=== PATIENT | male | born 1975 | race African-American/Black ===

== ENCOUNTER 2016-11-08 12:30 | Inpatient (IN) | payer MEDICARE ==
--- NOTE | ~2016-11-08 | DS ---
Discharge Summary [facility] [address] [place]. [address] NAME: TAY MARIA : 73 STATUS : ADM IN PAT#: [id number] AGE: 41 ADM/REG DATE : 11/09/16 MR#: [id number] REPORT SERV DATE: 11/11/16 DICTATED BY: JASBIR SYED DATE: 11/11/16 REPORT STATUS : Draft TRANSCRIBED BY: MODEnder DATE: 11/11/16 ADMISSION DATE: 11/08/2016 DISCHARGE DATE: DISCHARGE DIAGNOSES: Include, 1. Diabetic ketoacidosis. 2. Diabetes type 2, uncontrolled. Hemoglobin A1c of 10.2. 3. History of gastric bypass. 4. History of clotting disorder, on chronic Xarelto. 5. History of obstructive sleep apnea, but not currently using CPAP. DISCHARGE MEDICATIONS: Lantus insulin 22 units subcu twice a day, NovoLog insulin 15 units prior to meals, multivitamin one tab daily; Afrin nasal spray p.r.n., but with caution to not use more than four days in a row, Xarelto 20 mg at bedtime; calcium two tabs daily; vitamin B12 one tablet daily; fish oil one capsule daily; vitamin D one capsule daily. HISTORY OF PRESENT ILLNESS: A very pleasant 41-year-old male, who presented with elevated blood sugar and diabetic ketoacidosis. Please see the initial H and P of Dr. Jesús Su. This patient was admitted to the Hospitalist Service for further evaluation and treatment. He was given aggressive IV hydration and insulin was started IV to control blood sugars. Lab work was ordered and followed. HOSPITAL COURSE: I began seeing the patient the following day on 11/09/2016 where he was still feeling poorly. He was still hyperglycemic. His anion gap had begun to decrease down to 14. He was continued on his insulin drip with close followup of BMPs and he was also continued on his IV hydration of D5 half-normal saline with 20 of K. His insulin drip was increased and this continued to improve his blood sugars. His anion gap then fell to 11. He was transitioned to Levemir twice a day, scheduled NovoLog and a sliding scale and his sugars were followed closely. He was able to eat and drink. He has been able to ambulate in the room and is feeling much better. On 11/11/2016, his anion gap had fallen all the way to 7.0. He was feeling much better. He was felt safe for discharge home, to follow up with his executive personal assistant/primary care Dr. Diaz as scheduled this month. Hopefully, the adjustment of his long-acting insulin to twice a day dosing along with his other regimen will give him some better control overall as he continues to follow up. He is in agreement with this plan going forward. Questions were answered at bedside with the patient and daughter. Please note, greater than 30 minutes was spent on this discharge for medication teaching, followup planning, and further disposition. OLIVER/JULIO Jasbir Syed NP Discharge Summary [address] [place]. [address] NAME: TAY MARIA : 73 STATUS : ADM IN [facility]#: [id number] AGE: 41 ADM/REG DATE : 11/09/16 MR#: [id number] REPORT SERV DATE: 11/11/16 DICTATED BY: JASBIR SYED DATE: 11/11/16 REPORT STATUS : Draft TRANSCRIBED BY: JULIO DATE: 11/11/16 / [id number] CC: Raven Sams M.D. NO PCP
--- NOTE | ~2016-11-08 | HP ---
History And Physical [place] [id number] [place]. [address] NAME: TAY MARIA : 73 STATUS : ADM Mary PAT#: [id number] AGE: 41 ADM/REG DATE : 11/08/16 MR#: [id number] REPORT SERV DATE: 11/11/16 DICTATED BY: AMELIA DO DATE: 11/08/16 REPORT STATUS : Draft TRANSCRIBED BY: MODL DATE: 11/08/16 DATE OF ADMISSION: 11/08/2016 ATTENDING PHYSICIAN: Dr. Bishop. REASON FOR ADMISSION: Diabetic ketoacidosis assumed versus metabolic acidosis and type 2 diabetic. HISTORY: A 41-year-old black male with history of diabetes since age 21. He had morbid obesity with a weight of 360 pounds. Two years ago, he underwent a gastric bypass by Dr. Isidro Alvarado for the Alex-en-Y procedure. He does not vomit any longer. He has been getting short of breath when he walks around the tract in [facility] for the last 4 days when he was feeling badly with some abdominal pain around the sides into the flank and the back and some dysuria. He says he did not feel like an infected kind of dysuria and he has had a urinary tract in the past. He was nauseated without vomiting. He is urinating well and had bowel movement earlier today. PAST MEDICAL HISTORY: He has a history of obstructive sleep apnea. Cannot tolerate CPAP. HOME MEDICATIONS: His home medications include the following: NovoLog 15 units before meals three times a day, Lantus 25 units at bedtime; multivitamin 1 a day; Afrin nasal spray two puffs at bedtime; Xarelto [address] mg [address] daily from Dr. De Souza; calcium 2 tablets p.o. daily; vitamin B12 of 1 tablet p.o. daily; fish oil one a day; and vitamin D. ALLERGIES: IODINATED CONTRAST MATERIAL. WHEN HE HAS HAD DIABETIC KETOACIDOSIS IN THE PAST, HE WAS HOSPITALIZED AT [facility] WHERE DR. DILLARD IS. HE DID HAVE HIS GASTRIC BYPASS HERE UNDER THE CARE OF DR. ALVARADO IN DECEMBER 2013. SOCIAL HISTORY: He is . He has three children. He does not smoke or drink. He lives in [facility] with his mother. He does not have a primary care doctor at this point. FAMILY HISTORY: He has one brother alive and well and his father had clotting abnormalities. His 3 children are alive and well. His mother is alive and well with obesity. SOCIAL HISTORY: He does not smoke or drink. He is disabled. He used to work at the [employer] in [place], [place]. He lives here now in [place] with his mother having gone through a divorce in the past. He lives in [facility] and plans to go to the [employer] [place] where his daughters are singing, if he is better. REVIEW OF SYSTEMS: He has had abdominal pain around the mid part into the flanks. No nausea or vomiting. No History And Physical [address] [address] NAME: TAY MARIA : 73 STATUS : ADM Mary PAT#: [id number] AGE: 41 ADM/REG DATE : 11/08/16 MR#: [id number] REPORT SERV DATE: 11/11/16 DICTATED BY: AMELIA DO DATE: 11/08/16 REPORT STATUS : Draft TRANSCRIBED BY: JULIO DATE: 11/08/16 diarrhea. Bowel movement last today. Ate supper last night. He has had no swelling in the lower extremities. No melena, hematemesis, fits, seizures, convulsions, unilateral weakness, nausea, vomiting, or diarrhea. He has no weight loss, has stabilized. The remainder of the review of systems is negative. PHYSICAL EXAMINATION: GENERAL: Obese, black male, in no acute distress. VITAL SIGNS: His blood pressure was 133/72 with a heart rate of 56, respiratory rate 18, afebrile. HEENT: EOMI. Sclerae clear. Conjunctivae pink. NECK: No bruit without any JVD. CHEST: Clear to A and P. HEART: Regular S1, S2 without any murmur, gallop, or click. ABDOMEN: Soft, diffusely tender. No particular masses felt. EXTREMITIES: Have no edema. Distal pulses intact, dorsalis pedis, and posterior tibial. NEUROLOGICAL: He withdraws to plantar stimulation. Rv Mechanic is equal and symmetric bilaterally. Coordination intact, has no tremor. He is symmetric and equal neurologically. LABORATORY DATA: His BNP was 7.4. Prothrombin time was INR 1.2. Comprehensive metabolic profile showed a sodium of 132, potassium 4.1, chloride is 102, the CO2 is 10, creatinine 1.08, glucose 365, albumin 3.6, and the alkaline phosphatase is 138. His hemoglobin is 15, hematocrit 45, and platelet count 315,000. His chest x-ray showed negative for acute disease. Urinalysis, none was done. Serum ketones, none was done. ASSESSMENT: 1. Probable diabetic ketoacidosis. We will check the urinalysis looking for evidence of ketones now. I am going to go ahead and get a lactic acid level on the serum and serum ketones as well. 2. Diabetes type 2, now insulin controlled 22 years' duration. This may actually be a type 1.5 with type 2 treated as type 1. 3. History of gastric bypass. 4. Clotting abnormality. Lupus anticoagulant on Xarelto continuously. 5. Dysuria with flank pain and abdominal pain. Check urinalysis now for evidence of infection or hematuria. He has no history of stones. 6. History of obstructive sleep apnea, intolerant of the BiPAP. PLAN: Check urinalysis first. He has urinary tract infection, treat with antibiotics. I am going to go ahead and go with D5 containing solutions if blood sugars come down to 256 and start an insulin drip concurrently to try to clear the ketones assuming this is the primary problem. We will check a procalcitonin. If there are no ketones in the urine, we will change the direction of our therapy. History And Physical [address] [address] NAME: TAY MARIA : 73 STATUS : ADM Mary PAT#: [id number] AGE: 41 ADM/REG DATE : 11/08/16 MR#: [id number] REPORT SERV DATE: 11/11/16 DICTATED BY: AMELIA DO DATE: 11/08/16 REPORT STATUS : Draft TRANSCRIBED BY: MODEnder DATE: 11/08/16 DB/JULIO elia Do M.D. / [id number] CC: Steven Monroe Gusso, M.Ranulfo Duggan M.D. Rory Justo, MD
[2016-11-08 12:14] LABS: BASOPHILS 0.5 %; BASOPHILS ABSOLUTE 0.03 10/3/uL (0.0-0.16); EOSINOPHILS 0.4 %; EOSINOPHILS ABSOLUTE 0.02 10/3/uL (0.0-0.53); ER CBC TAT 0 Hrs 08 Mins; HEMOGLOBIN 15.6 g/dL (13.6-17.8); IMMATURE GRANULOCYTES 0.2 %; IMMATURE GRANULOCYTES ABSOLUTE 0.01 10/3/uL (0.0-0.11); LYMPHOCYTES 31.1 %; LYMPHOCYTES ABSOLUTE 1.77 10/3/uL (0.67-4.30); MEAN PLATELET VOLUME 9.3 fL (9.2-13.0); MONOCYTES ABSOLUTE 0.51 10/3/uL (0.21-1.20); NEUTROPHILS 58.8 %; NEUTROPHILS ABSOLUTE 3.35 10/3/uL (2.02-8.40); PLATELET COUNT 315 10/3/uL (150-400); RBC DISTRIBUTION WIDTH 13.5 % (12.0-16.0); RED CELL COUNT 5.28 10/6/uL (4.7-6.1); WHITE BLOOD CELLS 5.7 10/3/uL (4.5-10.5)
[2016-11-08 12:18] LABS: MANUAL DIFF NO %; MEAN CORPUS HGB CONC 34.7 g/dL (32.0-36.0); MEAN CORPUSCULAR HEMOGLOB 29.5 pg (26.0-34.0); MEAN CORPUSCULAR VOLUME 85.2 fL (80-100)
[2016-11-08 12:29] LABS: A/G RATIO 0.8 (0.7-1.9); ALBUMIN 3.6 G/DL (3.5-5.0); ALKALINE PHOSPHATASE 138 U/L (45-117); BUN (BLOOD UREA NITROGEN) 11 MG/DL (6-23); CHLORIDE, SERUM 102 MMOL/L (96-112); CO2 (CARBON DIOXIDE) 10 MMOL/L (24-34); CREATININE 1.08 MG/DL (0.70-1.30); GFR AFRICAN AMERICAN 98 ML/MIN (>=60); GFR NON AFRICAN AMERICAN 84 ML/MIN (>=60); GLOBULIN 4.6 G/DL (2.5-4.1); GLUCOSE, SERUM 305 MG/DL (60-99); POTASSIUM, SERUM 4.1 MMOL/L (3.5-5.3); SGOT(AST) 13 U/L (5-40); SGPT(ALT) 18 U/L (5-65); SODIUM, SERUM 132 MMOL/L (135-148); TOTAL BILIRUBIN 0.6 MG/DL (0-1.2); TOTAL PROTEIN 8.2 G/DL (6.0-8.5)
[~2016-11-08 12:30] MED LIST: CALTRA600D PO; CELEXA20 PO; COUMADIN10 MG; GLUCOPHAGE1000 MG PO; INSNOVR; INSNOVR SC; LANTUS SC; LOVENOX150 SC; MULTIPLE VIT PO; PR25 PO; PRAVAC PO; ULTRAM50 PO; VITAMIN B-122500 MCG
[2016-11-08 12:32] LABS: INTERNATIONAL NORMAL RATI 1.2 UNITS (-); PARTIAL THROMBO TIME 24.7 SEC (22.5-37.2); PROTIME (NOT ORD) 15.2 SEC (12.0-14.5)
[2016-11-08] MEDS ORDERED: LANTUS SC (13:32)
[2016-11-08] MEDS ORDERED: CALCIUM TABLET PO (13:33)
[2016-11-08] MEDS ORDERED: NOVOLOG SC (13:33)
[2016-11-08] MEDS ORDERED: XARELTO20 MG PO (13:33)
[2016-11-08] MEDS ORDERED: VITAMIN B12 TABLET PO (13:34)
[2016-11-08] MEDS ORDERED: VITAMIN D TABLET PO (13:36)
[2016-11-08] MEDS ORDERED: FISH OIL PO (13:36)
[2016-11-08] MEDS ORDERED: AFRIN15 NAS (13:37)
[2016-11-08] MEDS ORDERED: MULTIVITAMI1 PO (13:37)
[2016-11-08 15:14] LABS: WBC (NOT ORDERED) (RFLEX) 0 (0-5)
[2016-11-08 15:24] LABS: ASCORBIC ACID (UR NOT ORDER) NEG (NEG); BILIRUBIN, URINE NEGATIVE (NEG); ER URINALYSIS TAT 0 Hrs 10 Mins; KETONE, URINE 80 MG/DL (NEG); LEUKOCYTE ESTERASE(NOT OR NEG (NEG); NITRITE (URINE) NEG (NEG)
[2016-11-08 15:51] LABS: PROCALCITONIN <0.05 ng/mL (<0.5)
[2016-11-09 04:09] LABS: CALCIUM, SERUM 8.2 MG/DL (8.5-10.4); CHLORIDE, SERUM 107 MMOL/L (96-112); CREATININE 0.81 MG/DL (0.70-1.30); GFR AFRICAN AMERICAN 127 ML/MIN (>=60); GFR NON AFRICAN AMERICAN 110 ML/MIN (>=60); POTASSIUM, SERUM 3.5 MMOL/L (3.5-5.3); SODIUM, SERUM 136 MMOL/L (135-148)
[2016-11-09 04:10] LABS: BUN (BLOOD UREA NITROGEN) 7 MG/DL (6-23); CO2 (CARBON DIOXIDE) 17 MMOL/L (24-34); GLUCOSE, SERUM 188 MG/DL (60-99)
[2016-11-09 14:34] LABS: BUN (BLOOD UREA NITROGEN) 6 MG/DL (6-23); CALCIUM, SERUM 8.5 MG/DL (8.5-10.4); CHLORIDE, SERUM 107 MMOL/L (96-112); CO2 (CARBON DIOXIDE) 18 MMOL/L (24-34); CREATININE 0.86 MG/DL (0.70-1.30); GFR AFRICAN AMERICAN 124 ML/MIN (>=60); GFR NON AFRICAN AMERICAN 107 ML/MIN (>=60); GLUCOSE, SERUM 251 MG/DL (60-99); POTASSIUM, SERUM 4.1 MMOL/L (3.5-5.3); SODIUM, SERUM 135 MMOL/L (135-148)
[2016-11-09 20:48] LABS: BUN (BLOOD UREA NITROGEN) 8 MG/DL (6-23); CALCIUM, SERUM 8.3 MG/DL (8.5-10.4); CHLORIDE, SERUM 109 MMOL/L (96-112); CO2 (CARBON DIOXIDE) 20 MMOL/L (24-34); CREATININE 0.88 MG/DL (0.70-1.30); GFR AFRICAN AMERICAN 123 ML/MIN (>=60); GFR NON AFRICAN AMERICAN 106 ML/MIN (>=60); GLUCOSE, SERUM 234 MG/DL (60-99); SODIUM, SERUM 138 MMOL/L (135-148)
[2016-11-10 02:22] LABS: ASCORBIC ACID (UR NOT ORDER) NEG (NEG); BILIRUBIN, URINE NEGATIVE (NEG); KETONE, URINE 80 MG/DL (NEG); LEUKOCYTE ESTERASE(NOT OR NEG (NEG); WBC (NOT ORDERED) (RFLEX) 2 (0-5)
[2016-11-10 06:27] LABS: BASOPHILS 0.6 %; BASOPHILS ABSOLUTE 0.03 10/3/uL (0.0-0.16); EOSINOPHILS 0.8 %; EOSINOPHILS ABSOLUTE 0.04 10/3/uL (0.0-0.53); HEMATOCRIT 40.5 % (40.0-51.0); HEMOGLOBIN 14.2 g/dL (13.6-17.8); IMMATURE GRANULOCYTES 0.2 %; IMMATURE GRANULOCYTES ABSOLUTE 0.01 10/3/uL (0.0-0.11); LYMPHOCYTES 45.7 %; LYMPHOCYTES ABSOLUTE 2.27 10/3/uL (0.67-4.30); MEAN CORPUS HGB CONC 35.1 g/dL (32.0-36.0); MEAN CORPUSCULAR VOLUME 82.7 fL (80-100); MEAN PLATELET VOLUME 9.2 fL (9.2-13.0); MONOCYTES 7.2 %; MONOCYTES ABSOLUTE 0.36 10/3/uL (0.21-1.20); NEUTROPHILS 45.5 %; NEUTROPHILS ABSOLUTE 2.26 10/3/uL (2.02-8.40); PLATELET COUNT 286 10/3/uL (150-400); RBC DISTRIBUTION WIDTH 13.5 % (12.0-16.0)
[2016-11-10 06:28] LABS: MANUAL DIFF NO %
[2016-11-10 06:39] LABS: BUN (BLOOD UREA NITROGEN) 5 MG/DL (6-23); CALCIUM, SERUM 8.3 MG/DL (8.5-10.4); CHLORIDE, SERUM 107 MMOL/L (96-112); CO2 (CARBON DIOXIDE) 19 MMOL/L (24-34); CREATININE 0.76 MG/DL (0.70-1.30); GFR AFRICAN AMERICAN 130 ML/MIN (>=60); GFR NON AFRICAN AMERICAN 113 ML/MIN (>=60); GLUCOSE, SERUM 223 MG/DL (60-99); POTASSIUM, SERUM 3.8 MMOL/L (3.5-5.3); SODIUM, SERUM 136 MMOL/L (135-148)
[2016-11-11 05:37] LABS: BUN (BLOOD UREA NITROGEN) 3 MG/DL (6-23); CALCIUM, SERUM 8.5 MG/DL (8.5-10.4); CHLORIDE, SERUM 109 MMOL/L (96-112); CO2 (CARBON DIOXIDE) 26 MMOL/L (24-34); CREATININE 0.68 MG/DL (0.70-1.30); GFR AFRICAN AMERICAN 137 ML/MIN (>=60); GFR NON AFRICAN AMERICAN 118 ML/MIN (>=60); GLUCOSE, SERUM 204 MG/DL (60-99); POTASSIUM, SERUM 3.8 MMOL/L (3.5-5.3); SODIUM, SERUM 142 MMOL/L (135-148)
== END 2016-11-11 12:09 | disposition home or self-care (01) | DRG 639 ==
LOC: ER 12:30 → CDU1 14:53 → CDU2 15:31 → 4SO 11-09 16:18
PROVIDERS: Emergency Medicine; Hospitalist; Internal Medicine; Nurse Practitioner Family
DX: E13.10 Other specified diabetes mellitus with ketoacidosis without coma (principal); E66.9 Obesity, unspecified; G47.33 Obstructive sleep apnea (adult) (pediatric); R30.0 Dysuria; Z98.84 Bariatric surgery status; Z79.4 Long term (current) use of insulin; Z79.01 Long term (current) use of anticoagulants; Z79.899 Other long term (current) drug therapy; Z91.19 Patient's noncompliance with other medical treatment and regimen; Z86.718 Personal history of other venous thrombosis and embolism; Z91.041 Radiographic dye allergy status
CPT/HCPCS: 71020; 80048; 80053; 81001; 82962; 83036; 83605; 83735; 83880; 84145; 85025; 85610; 85730; 93005; 99285; A9270-GY